=== PATIENT | female | born 1965 | race Caucasian/White ===

== ENCOUNTER 2016-07-02 15:41 | Emergency (ER) | payer OTHER ==
[~2016-07-02] VITALS: Ht 160 cm; Wt 88.0 kg
[2016-07-02] MEDS ORDERED: D5 NS IV 1,000 ML IV SCH (16:00)
--- NOTE | 2016-07-02 16:42 | NUR ---
PT NOW HAVING RT LOWER QUAD ABD PAIN. CL
[2016-07-02] MEDS ORDERED: SODIUM CHLORIDE FLUSH 10 ML SYR IV PRN (16:45)
[2016-07-02] MEDS ORDERED: SODIUM CHLORIDE FLUSH 3 ML SYR IV PRN (16:45)
[2016-07-02] MEDS ORDERED: KETOROLAC 30 MG/ML (TORADOL) 1 ML VIAL IV ONE (16:45)
[2016-07-02] MEDS ORDERED: ONDANSETRON 2 MG/ML (Z0FRAN) 2 ML VIAL IV ONE (16:45)
[2016-07-02] MEDS ORDERED: ASCO100T6 PO (16:51)
[2016-07-02] MEDS ORDERED: MULT-955 PO (16:51)
[2016-07-02] MEDS ORDERED: TOLT2CAP PO (16:58)
[2016-07-02] MEDS ORDERED: ATN25T PO (16:58)
[2016-07-02] MEDS ORDERED: ALB.5NB20 HHN (16:58)
[2016-07-02] MEDS ORDERED: ACET325T38 PO (16:58)
[2016-07-02] MEDS ORDERED: ACYC200C PO (16:58)
[2016-07-02] MEDS ORDERED: ASPI325T4 PO (16:58)
[2016-07-02 17:11] LABS: BASOPHILS % (AUTO) 1 % (0-2); EOSINOPHILS # (AUTO) 0.1 10^3uL; EOSINOPHILS % (AUTO) 2 % (0-4); LYMPHOCYTES # (AUTO) 1.3 X10^3; MEAN CORPUSCULAR HGB CONC 33.4 g/dL (31.0-37.0); MEAN CORPUSCULAR VOLUME 94 FL (80-100); MEAN PLATELET VOLUME 10.3 FL (6.0-9.5); MONOCYTES # (AUTO) 0.3 X10^3; MONOCYTES % (AUTO) 6 % (3-11); NEUTROPHILS % (AUTO) 69 % (51-67); PLATELET COUNT 227 10^3uL (150-450)
[2016-07-02 17:15] LABS: MEAN CORPUSCULAR HEMOGLOBIN 31.5 PG (26.0-34.0)
[2016-07-02 17:15] LABS: BILIRUBIN,URINE Negative (Negative); CLARITY,URINE Clear; COLOR,URINE Yellow; GLUCOSE, URINE (UA) Negative (Negative); LEUKOCYTE ESTERASE ,URINE Negative (Negative); PH,URINE 5.5 (5.0 - 8.0); UROBILINOGEN,URINE 0.2 mg/dL (0.2-1.0)
[2016-07-02 17:25] LABS: ALBUMIN 4.3 g/dL (3.4-5.0); ANION GAP 14.4 MEQ/L (3-15); TOTAL PROTEIN 7.5 g/dL (6.4-8.5)
[2016-07-02] MEDS ORDERED: NF-TORA10 PO (18:26)
[2016-07-02] MEDS ORDERED: ONDAN4ODT PO (18:26)
[2016-07-02] MEDS ORDERED: ED- ONDANSETRON ODT 4 MG (ZOFRAN) 4 TABLETS/BTL PO ONE ×2 (18:27→18:30)
[2016-07-02] MEDS ORDERED: ED- TRAMADOL 50 MG (ULTRAM) 6 TABLETS/BTL PO ONE ×2 (18:28→18:30)
--- NOTE | 2016-07-02 18:40 | NUR ---
PT O2 SATS > 94% MOST OF ENTIRE STAY IN ED TODAY. DENIES ANY SOA OR RESP DIFFICULTY. CL
[2016-07-02 18:59] VITALS: BP 105/62
== END 2016-07-02 18:44 | disposition home or self-care (01) ==
LOC: ED 15:47
DX: M54.5 Low back pain (principal); S39.012A Strain of muscle, fascia and tendon of lower back, initial encounter; X58.XXXA Exposure to other specified factors, initial encounter; N20.1 Calculus of ureter
CPT/HCPCS: 36415; 80053; 81003; 82150; 83690; 85025; 86140; 96361; 96374; 96375; 99284; J1885; J2405; J7030; 99282

== ENCOUNTER 2016-07-03 04:27 | Emergency (ER) | payer OTHER ==
[~2016-07-03] VITALS: Ht 160 cm; Wt 88.6 kg
[~2016-07-03 04:27] MED LIST: ACET325T38 PO; ACYC200C PO; ALB.5NB20 HHN; ASCO100T6 PO; ASPI325T4 PO; ATN25T PO; MULT-955 PO; NF-TORA10 PO; ONDAN4ODT PO; TOLT2CAP PO
--- OUTSIDE RECORDS SUMMARY | 2016-07-03 04:32 | XMS REPORT | Summary of Care ---
Author Author Murali Colby M.D. Organization Unknown Address [address], [place] [id number] Phone Unavailable Care Team Providers Care Forest Manager Name Role Phone Lasha Mercado, R Unavailable Unavailable Venancio Foster PP Unavailable Unavailable Unavailable Functional Status Functional Status Health Issues Name Dates Details Functional status health issues are not documented Status: Cognitive Status Health Issues Name Dates Details Cognitive status health issues are not documented Status: Problems Name Dates Details Folliculitis (704.8, L73.9) Status: Active Herpes simplex (054.9, B00.9) Status: Active Medications Name Dates Details Clindamycin Phosphate 1 % External Gel APPLY AND GENTLY MASSAGE INTO AFFECTED AREA(S) EVERY DAY Quantity: 1 Refills: 0 Muarli Colby M.D. Started 30-Apr-2015 [id number] GM Tube Acyclovir 400 MG Oral Tablet Take 1 tablet twice daily Quantity: 60 Refills: 11 Murali Colby M.D. Started 30-Apr-2015 Active Allergies and Adverse Reactions Name Dates Details iodine Status: Active Keflex Status: Active Latex Gloves MISC Status: Active Procedures Procedure Dates Details Procedures not documented Immunization Name Dates Details Immunizations not documented Social History Smoking StatusUnknown if ever smoked Vital Signs Date Test Result Details No Known Vitals to report Results Date Description Value Details Results not documented Plan of Care Planned Observations Name Dates Details Planned Goals not documented Goal Instructions Instructions not documented Encounters Appointment; Murali Colby Encounter Diagnosis: Problem not documented On 30-Apr-2015 14:00
[2016-07-03] MEDS ORDERED: ONDANSETRON 2 MG/ML (Z0FRAN) 2 ML VIAL IV ONE (05:20)
[2016-07-03] MEDS ORDERED: HYDROmorphone 1 MG/ML (DILAUDID) SYRINGE IV ONE (05:20)
[2016-07-03] MEDS ORDERED: SODIUM CHLORIDE FLUSH 10 ML SYR IV PRN (05:20)
[2016-07-03] MEDS ORDERED: SODIUM CHLORIDE FLUSH 3 ML SYR IV PRN (05:20)
[2016-07-03 05:44] LABS: MEAN CORPUSCULAR HGB CONC 33.8 g/dL (31.0-37.0); MEAN CORPUSCULAR VOLUME 96 FL (80-100); MEAN PLATELET VOLUME 10.5 FL (6.0-9.5); PLATELET COUNT 216 10^3uL (150-450); WHITE BLOOD COUNT 12.76 10^3uL (4.0-11.0)
[2016-07-03 05:54] LABS: ALBUMIN 4.3 g/dL (3.4-5.0); ANION GAP 16.9 MEQ/L (3-15); CALCULATED IONIZED CALCIUM 3.9 mg/dL (3.8-4.6); TOTAL PROTEIN 7.5 g/dL (6.4-8.5)
[2016-07-03] MEDS ORDERED: METOCLOPRAMIDE 10 MG/2 ML (REGLAN) VIAL IV ONE (06:00)
[2016-07-03 06:08] LABS: BILIRUBIN,URINE Negative (Negative); CLARITY,URINE Clear; GLUCOSE, URINE (UA) Negative (Negative); LEUKOCYTE ESTERASE ,URINE Negative (Negative); UROBILINOGEN,URINE 0.2 mg/dL (0.2-1.0)
[2016-07-03 06:09] LABS: COLOR,URINE Dark Yellow
[2016-07-03 06:11] LABS: MEAN CORPUSCULAR HEMOGLOBIN 32.3 PG (26.0-34.0)
[2016-07-03 06:12] LABS: BAND NEUTROPHILS % 0 % (0-6); LYMPHOCYTES # 0.6 #; MONOCYTES # 0.8 #; MONOCYTES % 7 % (3-11); SEGMENTED NEUTROPHILS % 88 % (51-67); TOTAL CELLS COUNTED 100
[2016-07-03 06:13] LABS: EOSINOPHILS % 0 % (0-4); RBC MORPH NORMAL (NORMAL)
[2016-07-03] MEDS ORDERED: PROMETHAZINE HCL INJ 25 MG in SODIUM CHLORIDE 25 ML IV ONE (06:30)
--- NOTE | 2016-07-03 07:26 | NUR ---
dr dubon called for consult
--- NOTE | 2016-07-03 07:28 | NUR ---
DR BHAKTA TALKS WITH DR CHIU RE PT. CL
--- NOTE | 2016-07-03 07:33 | Diagnostic Imaging Report ---
PROCEDURE: CT abdomen and pelvis without contrast. TECHNIQUE: Multiple contiguous axial images were obtained through the abdomen and pelvis without the use of intravenous contrast. INDICATION: Right lower quadrant pain. COMPARISON: None available. FINDINGS: The lung bases are clear. No pericardial or pleural effusion. Kidneys are symmetric in size. No renal or ureteral calculi. No obstructive uropathy on either side. The urinary bladder is distended without focal wall thickening and there are no intraluminal calculi. There is a subcentimeter exophytic hypodensity possibly arising from the fundus of the uterus measuring 0.8 x 0.8 cm, likely represents a pedunculated fibroid. There is a second low density rounded 1.3 x 1.4-cm focus in the left perirectal space. Evaluation of the abdominal viscera is mildly limited without IV contrast. Allowing for this, liver, spleen, pancreas, and adrenals are normal. The stomach is decompressed. No bowel obstruction. The gallbladder is normal. No pericolonic inflammatory changes. The appendix is small versus absent. No right lower quadrant inflammatory changes to suggest acute appendicitis. Normal-caliber aorta. No abdominal or pelvic lymphadenopathy. No concerning osseous lesions. IMPRESSION: 1. No acute intra-abdominal process. Specifically, no obstructive uropathy or urinary tract calculi. 2. Two well-circumscribed, nonaggressive hypodense lesions in the pelvis along the posterior margin of the uterus and in the left perirectal space. These may represent benign cysts and/or an exophytic fibroid. This can be further evaluated with a pelvic ultrasound on a nonemergent basis. Dictated by: Dictated on workstation # [id number]
--- NOTE | 2016-07-03 07:55 | NUR ---
PT SLEEPING WITH HUSB AT BEDSIDE. CL
--- NOTE | 2016-07-03 08:44 | NUR ---
PT STATES SHE FEELS MUCH BETTER. CL
[2016-07-03 08:57] VITALS: BP 102/54
== END 2016-07-03 09:21 | disposition home or self-care (01) ==
LOC: ED 04:28
DX: R10.31 Right lower quadrant pain (principal); M54.89 Other dorsalgia
CPT/HCPCS: 36415; 74176; 80053; 81003; 81025; 85025; 96361; 96365; 96375; 99285; J1170; J2405; J2550; J2765; J7030; 99283